=== PATIENT | male | born 1995 | race Caucasian/White ===

== ENCOUNTER 2019-08-18 17:58 | Emergency (ER) | payer SELFPAY ==
[2019-08-18 18:00] VITALS: BP 146/71; PULSE 92; RESP 18; TEMP 36.6; O2SAT 99; BMI 23.0
--- NOTE | 2019-08-18 18:59 | ED.DCSUM_ITS ---
- ER Visit Summary Date of Service: 08/18/19 Chief Complaint: Dental pain History of Present Illness: The patient is a 23 M who presents with left lower dental pain that is been getting worse over the past 3 to 4 days. Patient describes the pain is sharp and throbbing. Patient states the pain is over the left lower molars. Patient states that nothing makes it worse or makes it better. Patient has been using ibuprofen and Tylenol with no relief. Patient admits to some swelling of his jaw and face today. Patient also admits to sensitivity to hot. Patient denies any fevers or chills. Patient denies any difficulty breathing or difficulty swallowing. Physical Examination: Oral mucosa is pink and moist. There is a large dental caries noted over the left lower first molar. There is some mild gingival edema. There is no abscess formation. Oropharynx is clear. Neck is supple. Trachea is midline. There is no JVD. There is no sublingual edema or erythema. Heart was regular rate and rhythm. Lungs are clear and equal bilaterally. Emergency Department Course and Treatment: Patient was given a prescription for Pen-Vee K. Patient was instructed to follow-up with a dentist in 5 to 7 days. Patient was also instructed to follow-up with his primary care physician in 5 to 7 days. Patient understood and was agreeable with the plan. All questions were answered. Disposition: Discharge home Impression: Infected dental caries This note was generated with [employer] dictation software. It may contain incorrect words, spelling, and punctuation that were not noted in review of the chart prior to signing ED Disposition - Plan for ED Patient: Disposition: Home or Assisted Living Diagnosis: Infected dental caries Instructions: Dental Abscess Prescriptions: Penicillin V Potassium 500 mg PO 4X/DAY #40 tab Prescription Printed Referrals: Care Physician,No Primary [Primary Care Provider] - Ann Hunter [NON-STAFF] - 5-7 Days
[2019-08-18 19:15] VITALS: PULSE 88; RESP 16; O2SAT 99
== END 2019-08-18 19:15 | disposition home or self-care (01) ==
PROVIDERS: Emergency Provider Emergency Medicine
DX: K02.9 Dental caries, unspecified (principal); K04.7 Periapical abscess without sinus; Z72.0 Tobacco use
CPT/HCPCS: 99282

== ENCOUNTER 2019-09-25 07:23 | Emergency (ER) | payer SELFPAY ==
[2019-09-25 07:25] VITALS: BP 136/75; PULSE 89; RESP 20; TEMP 36.9; O2SAT 100; BMI 25.9
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
[2019-09-25] MEDS: LORazepam 2 MG/ML Syringe 1 MG IV (07:42)
[2019-09-25] MEDS: 0.9% Normal Saline 1,000 ML 150 ML IV (07:43)
[2019-09-25] MEDS: Diphth,Pertuss(Acell),Tet Vac 0.5 ML Vial IM (07:43)
[2019-09-25 07:50] LABS: Absolute Lymphocyte Count 1.91 X10^3/uL (0.83-4.51); Absolute Neutrophil Count 5.6 X10^3/uL (2.0-7.7); Basophil# 0.06 X10^3/uL; Basophil% 0.7 % (0-1); Eosinophil# 0.29 X10^3/uL; Eosinophils% 3.4 % (0-5); Hematocrit 45.5 % (40-54); Hemoglobin 15.8 g/dL (13.0-16.5); Lymphocyte # 1.91 X10^3/ul (4.0); Lymphocyte % 22.6 % (19-41); Mean Corp Hgb Conc 34.7 g/dL (32-36); Mean Corpuscular Hgb 30.7 pg (27.0-32.0); Mean Corpuscular Volume 88.5 fL (80-94); Mean Platelet Vol. 10.7 fl (6.2-12.0); Monocyte# 0.56 X10^3/uL; Monocyte% 6.6 % (0-10); NRBC Flagged by Analyzer 0 % (0-5); Neutrophil % 66.5 % (47-70); Platelet Count 258 K/mm3 (150-450); RBC Distribution Width CV 12.6 % (11.6-14.6); RBC Distribution Width SD 41.1 fl (35.1-43.9); Red Blood Count 5.14 M/mm3 (4.6-6.2); White Blood Count 8.4 K/mm3 (4.4-11.0)
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
[2019-09-25 08:05] LABS: ALB/GLOB Ratio 1.2 RATIO (0.9-2.4); AST(SGOT) 20 U/L (15-37); Alanine Aminotransfer ALT/SGPT 24 U/L (16-61); Albumin, Serum 4.4 g/dL (3.2-5.0); Alkaline Phosphatase 52 U/L (45-117); Anion Gap 8 (5-15); BUN 11 mg/dL (7-18); BUN/Creat Ratio 7.9 RATIO (10-20); Calcium,Total 9.3 mg/dL (8.5-10.1); Chloride 111 mmol/L (98-107); EST Glomerular Filtration Rate 66 mL/min (>60); Est Glom Filt Rate - Afr Amer 80 mL/min (>60); Estimated Creatinine Clearance 90.07 ml/min; Globulin 3.8 g/dL (2.2-4.2); Glucose 92 mg/dL (74-106); Potassium 4.1 mmol/L (3.5-5.1); Protein, Total 8.2 g/dL (6.4-8.2); Sodium Level 142 mmol/L (136-145)
[2019-09-25 08:12] LABS: CPK Total, Creatine Kinase 200 U/L (39-308)
[2019-09-25 09:06] VITALS: BP 132/68; PULSE 80; RESP 19; O2SAT 98
--- NOTE | 2019-09-25 09:07 | ED.RN ---
DISCHARGE INSTRUCTIONS GIVEN TO AND REVIEWED WITH PATIENT, PATIENT DENIES QUESTIONS OR CONCERNS AND VOICES UNDERSTANDING OF DISCHARGE INSTRUCTIONS. PT TO PRIVATE VEHICLE VIA WHEELCHAIR.
== END 2019-09-25 09:08 | disposition home or self-care (01) ==
PROVIDERS: Emergency Provider Emergency Medicine
DX: S97.02XA Crushing injury of left ankle, initial encounter (principal); S80.812A Abrasion, left lower leg, initial encounter; V49.88XA Car occupant (driver) (passenger) injured in other specified transport accidents, initial encounter; Y93.89 Activity, other specified
CPT/HCPCS: 70450; 71045; 72125; 72170; 73590; 73630; 80053; 82550; 85025; 90715; 96361; 96374; 99285